=== PATIENT | female | born 1960 | race Caucasian/White ===

== ENCOUNTER 2018-01-07 06:00 | Day surgery (SDC) | payer BC ==
[2018-01-07] MEDS ORDERED: TRANEXAMIC ACID 1000 MG/10 ML VIAL IVPUSH ONE (06:13)
[2018-01-07] MEDS ORDERED: CEFAZOLIN 2 GM/D5W 2 GM/50 ML ML IVPB ONE (06:13)
[2018-01-07] MEDS ORDERED: GABAPENTIN 300 MG CAPSULE (FP) PO ONE (06:13)
[2018-01-07] MEDS ORDERED: oxyCODONE HCL 10 MG SUSTAINED ACTING TABLET PO ONE (06:13)
[2018-01-07] MEDS ORDERED: CELECOXIB 200 MG CAPSULE PO ONE (06:13)
[2018-01-07] MEDS ORDERED: ROPIVICAINE 0.2%/MORPH PF/KETOROLAC - 51ML DISP.SYRINGE IA ONE ×2 (06:13→08:52)
[2018-01-07 06:47] VITALS: BMI 39.4
[2018-01-07] MEDS ORDERED: ROPIVACAINE HCL 0.5% 30ML VIAL ONE (06:48)
[2018-01-07] MEDS ORDERED: MIDAZOLAM HCL 2 MG/2 ML SINGLE DOSE VIAL ONE ×3 (06:48→07:14)
[2018-01-07] MEDS ORDERED: DEXAMETHASONE SOD PHOSPHATE/PF 10 MG/ML SDV ONE (06:48)
[2018-01-07] MEDS ORDERED: VANCOMYCIN 1,000 MG VIAL (RESTRICTED TO ID ONLY) ONE (07:04)
[2018-01-07] MEDS ORDERED: THROMBIN (BOVINE) 5,000 UNIT VIAL TP ONE (07:04)
[2018-01-07] MEDS ORDERED: ceFAZolin SODIUM 1 GM VIAL ONE ×2 (07:04→08:20)
[2018-01-07] MEDS ORDERED: GELATIN, ABSORBABLE 100 EACH SPONGE TP ONE (07:04)
[2018-01-07] MEDS ORDERED: LIDOCAINE HCL/PF 2% SDV 5ML VIAL ONE (07:10)
[2018-01-07] MEDS ORDERED: DEXAMETHASONE SOD PHOSPHATE 4 MG/1 ML VIAL ONE (07:10)
[2018-01-07] MEDS ORDERED: ONDANSETRON 4 MG/2 ML VIAL ONE (07:10)
[2018-01-07] MEDS ORDERED: SUCCINYLCHOLINE CHLORIDE 200 MG/10 ML VIAL ONE (07:11)
--- NOTE | 2018-01-07 07:55 | HP ---
[facility]ellite [facility] - Chief Complaint Chief Complaint: left knee pain - Past Medical History Allergies/Adverse Reactions: Allergies Allergy/AdvReac Type Severity Reaction Status Date / Time No Known Drug Allergies Allergy Verified 01/07/18 06:22 BEE STINGS Allergy Severe SWELLING/RA Uncoded 12/29/17 11:47 SH ...LMP: 08/13/11 - Current Medications Current Medications: Home Medications Medication Instructions Recorded Alprazolam [Xanax] 0.25 mg PO Q6H PRN 12/29/17 Aspirin Coated [Ecotrin -] 81 mg PO DAILY 12/29/17 Atorvastatin Ca [Lipitor] 20 mg PO DAILY 12/29/17 Epinephrine [Epipen 2-Willie] 0.3 mg IJ ASDIR PRN 12/29/17 Ferrous Sulfate [Iron] 325 mg PO BID 12/29/17 Meloxicam 15 mg PO DAILY 12/29/17 Metformin HCl 500 mg PO DAILY 12/29/17 Multivitamins [Tab-A-Vit -] 1 tab PO DAILY 12/29/17 Paroxetine HCl [Paxil -] 20 mg PO DAILY 12/29/17 Satellite Physical Exam - Physical Examination Vital Signs: Vital Signs Period Temp Pulse Resp BP Sys/Rey Pulse Ox Last 24 Hr 98.1 F 82 18 108/74 97 General Appearance: Well Nourished, Well Developed, Alert & Oriented x3 ENT: Clear Lung: Normal air movement Heart: Regular rate & rhythm Extremities: Other (left knee- + swelling, + ttp medially, decr rom, nvi xrays show grade 4 medial djd) Neurological: Intact, Alert, Oriented Satellite Impression/Plan - Impression/Plan Impression: left knee medial djd Operative Procedure: left medial topher ukr Date to be Performed: 01/07/18
[2018-01-07] MEDS ORDERED: TRANEXAMIC ACID 1000 MG/10 ML VIAL ONE (08:20)
[2018-01-07] MEDS ORDERED: SODIUM CHLORIDE 0.9% P/F 10 ML VIAL IJ ONE (08:20)
[2018-01-07] MEDS ORDERED: ALPRAZolam 0.25 MG TABLET PO PRN (09:42)
[2018-01-07] MEDS ORDERED: MAG HYDROX/AL HYDROX/SIMETH 30 ML UNIT-DOSE CUP PO PRN (09:43)
[2018-01-07] MEDS ORDERED: LACTATED RINGERS SOLUTION 1,000 ML IV SCH ×2 (09:45→10:00)
--- NOTE | 2018-01-07 09:46 | OP ---
Operative Note - Note: Operative Date: 01/07/18 (fidencio) Pre-Operative Diagnosis: left knee medial djd Operation: left medial topher ukr Post-Operative Diagnosis: Same as Pre-op Surgeon: Bryant Atkins Treating Engineer: Ethan Barnes Anesthesiologist/BELLMAKER: Freddy Damico Anesthesia: Spinal, Local Specimens Removed: bone fragments Estimated Blood Loss (mls): 100 Operative Report Dictated: Yes
[2018-01-07] MEDS ORDERED: oxyCODONE HCL 5 MG TABLET PO PRN ×2 (09:54)
[2018-01-07] MEDS ORDERED: ONDANSETRON 4 MG/2 ML VIAL IVPUSH PRN (09:54)
[2018-01-07] MEDS ORDERED: ACETAMINOPHEN 325 MG TABLET (FP) PO SCH (10:00)
--- NOTE | 2018-01-07 10:34 | SPEC ---
DATE OF OPERATION: 01/07/2018 PREOPERATIVE DIAGNOSIS: Degenerative joint disease, left knee. POSTOPERATIVE DIAGNOSIS: Degenerative joint disease, left knee. PROCEDURE: Left knee unicompartmental knee replacement with robotic-assisted navigation (MAKOplasty) and patelloplasty. SURGICAL ATTENDING: Bryant Atkins MD DIGITAL COMMUNICATIONS MANAGER: JULIO CESAR Blankenship ANESTHESIA: Regional and spinal. CLOSURE: Medial KAYLEN components with a 4 femur, 4 tibia, and an 8 polyethylene; No. 1 Vicryl, fascia; 0 and 2-0, subcutaneous; 3-0 Monocryl subcuticular with skin glue for skin; 4-0 undyed Vicryl for pin sites. ESTIMATED BLOOD LOSS: Negligible. TOURNIQUET TIME: Approximately 25 minutes. COMPLICATIONS: None. CONDITION: To recovery in stable condition. DESCRIPTION OF OPERATIVE PROCEDURE: Patient was taken to the operating room on January 07, 2018. Spinal and regional anesthesia was administered by the anesthesiologist. IV Kefzol and TXA were administered prophylactically prior to the case. A well-padded pneumatic tourniquet was placed on the left proximal thigh. The left lower extremity was prepped and draped in the usual sterile fashion. A 6- to 8-cm longitudinal incision over the medial side of the patella from mid patella to the tibial tubercle was incised and was deepened using Bovie cautery. An arthrotomy was then made just medial to the patellar tendon and the patella. Subperiosteal dissection was done on the anteromedial proximal tibia all the way back to the MCL. Partial fat pad excision was performed, exposing the medial compartment. Checkpoint was malleable at both the femur and the tibia. Using 2 stab incisions in the femur 1 handbreadth above the patella on the femur and 2 stab incisions 1 handbreadth below the tibial tubercle on the tibia, 2 threaded pins were drilled in parallel fashion from anterior to posterior, going through the proximal cortex and engaging the 2nd but not through the 2nd cortex. To these threaded pins were fastened navigation rays, 1 on the femur and 1 on the tibia. The knee was then registered with the navigation device with the center of the rotation of the hip, medial and lateral malleoli, and multiple points both on the femur and on the tibia. Excellent registration of less than 0.5 mm was obtained on both to ensure adequate registration. The navigation device ensured us to "pop the bubbles" both on the femur and the tibia and that was performed and passed registration. The knee was then thoroughly inspected to remove all osteophytes both on the femur and the tibia. Also, osteophytes on the trochlea and on the surface of the patella were removed as well. The knee was then stressed with valgus stress at 0, 30, 60, 90, and 120 degrees of flexion. This propagated a looseness/tightness graft. The virtual positions of the components were then optimized to ensure an excellent graft. The tracking also was optimized by manipulating the virtual position to ensure that the femoral component articulated with the central portion of the tibial component. The robot was then brought into the field and was registered. The robot was used to bur the bone on both the femur and the tibia as to the specifications of the components. The trial components were then applied on both the femur and the tibia with an appropriate polyethylene insert. The knee was taken through a range of motion and found to have full extension, full flexion, with excellent stability. Stressing the graft revealed an excellent looseness/tightness graft with the trial components in place. The trial components were removed. The knee was thoroughly irrigated with a copious amount of antibiotic irrigation. The real components were then cemented in using modern generation cement techniques with antibiotic cement and pressurization. After the cement was hardened, the knee was thoroughly inspected to remove out all excess cement. The real polyethylene insert was then clipped into place. Range of motion and stability were again assessed to be as they were with the trials. At this time, the pins and the checkpoints were removed. The knee was again thoroughly irrigated. The arthrotomy was closed with No. 1 Vicryl, 0 and 2-0 subcutaneous, and 3-0 Monocryl subcuticular with skin glue for the skin, 4-0 undyed Vicryl for the pin sites. Sterile pressure dressing was placed over the knee. Patient awakened from anesthesia and transferred to recovery in stable condition. No complications. Estimated blood loss negligible. X-rays postoperatively revealed excellent position of the components. Shree [id number]
[2018-01-07] MEDS: PARoxetine HCL 20 MG TABLET (FP) PO SCH (12:34)
[2018-01-07] MEDS: PANTOPRAZOLE 40 MG TABLET (FP) PO SCH (12:34)
[2018-01-07] MEDS: FERROUS SO4 325 MG TABLET (FP) PO SCH ×2 (12:34→21:52)
[2018-01-07] MEDS: MULTIVITAMINS (DAILY MVI) TABLET (FP) PO SCH (12:34)
[2018-01-07] MEDS: SENNOSIDES/DOCUSATE COMBO (SENNA PLUS) TABLET (UD) PO SCH ×2 (12:34→21:52)
[2018-01-07] MEDS: INSULIN SLIDING SCALE (NOVOLOG) 1 VIAL SQ SCH ×3 (12:34→21:53)
[2018-01-07] MEDS: CEFAZOLIN 2 GM/D5W 2 GM/50 ML ML IVPB SCH (16:33)
[2018-01-07] MEDS: ACETAMINOPHEN 325 MG TABLET (FP) PO SCH (17:19)
[2018-01-07] MEDS: oxyCODONE HCL 10 MG SUSTAINED ACTING TABLET PO SCH (21:53)
[2018-01-07] MEDS ORDERED: ATORVASTATIN CA 20 MG TABLET (FP) PO SCH (22:00)
[2018-01-08] MEDS: CEFAZOLIN 2 GM/D5W 2 GM/50 ML ML IVPB SCH (00:21)
[2018-01-08] MEDS: ACETAMINOPHEN 325 MG TABLET (FP) PO SCH ×2 (00:22→06:33)
[2018-01-08 06:33] VITALS: BP 158/71; PULSE 81; TEMP 98
[2018-01-08] MEDS: INSULIN SLIDING SCALE (NOVOLOG) 1 VIAL SQ SCH (06:33)
[2018-01-08] MEDS ORDERED: metFORMIN HCL 500 MG TABLET (FP) PO SCH (07:00)
[2018-01-08] MEDS ORDERED: ASPIRIN 325 MG TABLET PO SCH (08:00)
[2018-01-08] MEDS: SENNOSIDES/DOCUSATE COMBO (SENNA PLUS) TABLET (UD) PO SCH (10:02)
[2018-01-08] MEDS: PARoxetine HCL 20 MG TABLET (FP) PO SCH (10:02)
[2018-01-08] MEDS: PANTOPRAZOLE 40 MG TABLET (FP) PO SCH (10:02)
[2018-01-08] MEDS: oxyCODONE HCL 10 MG SUSTAINED ACTING TABLET PO SCH (10:02)
[2018-01-08] MEDS: FERROUS SO4 325 MG TABLET (FP) PO SCH (10:03)
[2018-01-08] MEDS: MULTIVITAMINS (DAILY MVI) TABLET (FP) PO SCH (10:03)
== END 2018-01-08 11:35 | disposition home health service (06) ==
LOC: FASU 06:00 → FM/S 06:13 → FASU 01-08 11:35
PROVIDERS: ATTEND Orthopaedic Surgery
PROC: 8E0YXBZ Computer Assisted Procedure of Lower Extremity (ICD-10-PCS; 2018-01-07)
PROC: 8E0Y0CZ Robotic Assisted Procedure of Lower Extremity, Open Approach (ICD-10-PCS; 2018-01-07)
PROC: 0SRD0L9 Replacement of Left Knee Joint with Medial Unicondylar Synthetic Substitute, Cemented, Open Approach (ICD-10-PCS; principal; 2018-01-07 08:30)
DX: M17.12 Unilateral primary osteoarthritis, left knee (principal)
CPT/HCPCS: 20985; 27446; C1776; S2900; 73560-TC-LT-FY; 82962; 94760; 97116-GP; 97161-GP

== ENCOUNTER 2018-07-04 08:30 | Day surgery (SDC) | payer BC ==
[2018-07-01 14:47] VITALS: BMI 39.4
[2018-07-04 10:18] VITALS: TEMP 97.4
[2018-07-04 14:30] VITALS: BP 112/64; PULSE 78
--- NOTE | 2018-07-06 14:58 | PATH ---
Surgical Pathology Report Patient Name: RUFINA MURO [facility]. Rec. #: [id number] /Age/Gender: 1960 (Age: 57) / F Account: [id number] Location: U-ENDOSCOPY Taken: 07/04/2018 Received: 07/04/2018 Reported: 07/06/2018 Physicians: Omar Cordero M.D. Specimen(s) Received RECTAL POLYPS Clinical History Colon cancer screening Postoperative diagnosis: Polyps, diverticulosis Final Diagnosis RECTAL POLYPS, POLYPECTOMY: HYPERPLASTIC POLYPS. Electronically Signed Krystin Salas M.D. Gross Description Received in formalin, labeled "rectal polyps" are 3 floyd, irregular portions of soft tissue ranging from 0.3-0.4 cm. in greatest dimension. The specimens are submitted in toto in one cassette 07/04/201807/04/2018
== END 2018-07-04 11:30 | disposition home or self-care (01) ==
LOC: JASU-ENDO 08:30
PROVIDERS: ATTEND Internal Medicine Gastroenterology
PROC: 0DBP8ZX Excision of Rectum, Via Natural or Artificial Opening Endoscopic, Diagnostic (ICD-10-PCS; principal; 2018-07-04 09:30)
DX: Z12.11 Encounter for screening for malignant neoplasm of colon (principal); Z80.0 Family history of malignant neoplasm of digestive organs; K62.1 Rectal polyp; K57.30 Diverticulosis of large intestine without perforation or abscess without bleeding; E11.9 Type 2 diabetes mellitus without complications; Z79.84 Long term (current) use of oral hypoglycemic drugs
CPT/HCPCS: 88305-TC

== ENCOUNTER 2023-11-13 11:54 | Emergency (ER) | payer BC ==
[2023-11-13 12:27] VITALS: BMI 36.0
[2023-11-13 13:37] LABS: BASO % 0.6 % (0-2.0); EOS % 2.9 % (0-4.5); HEMATOCRIT 36.4 % (32.4-45.2); HEMOGLOBIN 12.5 GM/dL (10.7-15.3); LYMPH % 23.2 % (8-40); MCH 30.6 pg (25.7-33.7); MCHC 34.3 g/dl (32.0-36.0); MEAN CELL VOLUME 89.4 fl (80-96); MEAN PLT VOLUME 7.2 fl (7.5-11.1); MONO % 6.8 % (3.8-10.2); NEUT % 66.5 % (42.8-82.8); PLATELET COUNT 303 10^3/uL (134-434); RBC 4.07 M/mm3 (3.60-5.2); RDW 13.1 % (11.6-15.6); WHITE BLOOD COUNT 6.1 K/mm3 (4.0-10.0)
[2023-11-13 13:40] LABS: PROTHROMBIN TIME (PATIENT) 11.6 SEC (9.7-13.0)
[2023-11-13 13:42] LABS: ACTIVATED PTT 29.9 SECONDS (25.2-36.5)
[2023-11-13 13:59] LABS: POTASSIUM 4.3 mmol/L (3.5-5.1)
[2023-11-13 14:02] LABS: CALCIUM 9.3 mg/dL (8.5-10.1)
[2023-11-13 14:03] LABS: ALBUMIN 3.8 g/dl (3.4-5.0); BLOOD UREA NITROGEN 17.6 mg/dL (7-18)
[2023-11-13 14:08] LABS: BILIRUBIN,TOTAL 0.7 mg/dL (0.2-1); TOT PROT 7.1 g/dl (6.4-8.2)
[2023-11-13 14:18] LABS: CREATININE 0.8 mg/dL (0.55-1.3)
[2023-11-13 14:30] LABS: MAGNESIUM 2.1 mg/dL (1.8-2.4)
[2023-11-13 15:30] VITALS: BP 132/60; PULSE 85; RESP 18; TEMP 98.1
== END 2023-11-13 17:22 | disposition home or self-care (01) ==
LOC: JER 11:54
DX: R07.89 Other chest pain (principal); M25.511 Pain in right shoulder; M25.512 Pain in left shoulder; R00.0 Tachycardia, unspecified; Z20.822 Contact with and (suspected) exposure to COVID-19
CPT/HCPCS: 0241U-QW; 36415; 71046-TC-FY; 80053; 83735; 84484; 85025; 85610; 85730; 93005; 93010; 99285-25